=== PATIENT | male | born 1960 | race Caucasian/White ===

== ENCOUNTER 2017-10-02 11:29 | Emergency (ER) | payer BC, OTHER ==
[~2017-10-02] VITALS: Ht 172.7 cm; Wt 98.4 kg
--- NOTE | ~2017-10-02 | EKG ---
[place] [address] [facility] [place] [address] ELECTROCARDIOGRAM REPORT Name: KARINE MAR [facility]#: [id number] Admission: 10/02/17 Attend Phys: Discharge: 10/02/17 Date of : 62 Report #: [id number] THIS REPORT FOR: //name// [facility] ED Test Date: 2017-10-02 Test Time: 13:16:13 Pat Name: KARINE MAR Department: Room: Gender: M Car Repairer Helper: [id number] : 1960 Requested By: Josselyn Krause Order Number: [id number] MD: Endy Daugherty Measurements Intervals [place] Rate: 66 P: 28 AK: 177 QRS: -32 QRSD: 100 T: 121 QT: 380 QTc: 399 Interpretive Statements Sinus rhythm Left axis deviation Abnormal T, consider ischemia, lateral leads Compared to ECG 12/13/2016 20:01:16 Lateral T wave inversion now present Electronically Signed On 10-03-2017 9:24:25 DIRECTOR OF RESERVATIONS by Endy Daugherty [email or web address] <ELECTRONICALLY SIGNED> By: Endy Daugherty MD, [facility] 10/03/17 0924 1316 1316 Endy Daugherty MD, [facility] /EPI
[2017-10-02 13:38] LABS: ABSOLUTE NEUTROPHILS 3.8 thou/uL (1.4-8.2); BASOPHILS 0.7 % (0.0-2.0); EOSINOPHILS 1.6 % (0.0-3.0); HEMATOCRIT 53.4 % (42.0-52.0); HEMOGLOBIN 18.1 gm/dL (14.0-18.0); LYMPHOCYTES 29.7 % (24.0-44.0); MCH 30.6 pg (26.0-34.0); MCHC 33.9 g/dL (28.0-37.0); MCV 90.3 fL (80.0-100.0); MONOCYTES 11.4 % (1.0-8.0); POLYS 56.6 % (36.0-66.0); RBC 5.91 mil/uL (4.50-6.00); RDW 13.6 % (10.5-14.5); WBC 7.4 thou/uL (4.0-11.0)
[2017-10-02 13:40] LABS: MANUAL DIFF NO
[2017-10-02 13:46] LABS: ANION GAP 9 mmol/L (7-16); BUN 17 mg/dL (7-18); CALCIUM 9.4 mg/dL (8.5-10.1); CHLORIDE 102 mmol/L (98-107); CO2 26 mmol/L (21-32); CREATININE 1.4 mg/dL (0.7-1.3); GLUCOSE 106 mg/dL (74-106); POTASSIUM 4.6 mmol/L (3.5-5.1); SODIUM 137 mmol/L (136-145)
[2017-10-02 13:55] LABS: TROPONIN-I < 0.04 ng/mL (<0.06)
[2017-10-02 14:30] LABS: PLATELET COUNT 184 thou/uL (150-400)
[2017-10-02] MEDS ORDERED: ARIMIDEX PO (14:31)
[2017-10-02] MEDS ORDERED: LIPITOR 20 MG T20 M1 PO (14:32)
[2017-10-02] MEDS ORDERED: CLOMIPRAMINE HC50 M1 GT (14:33)
[2017-10-02] MEDS ORDERED: COZAAR 25 MG TA25 M2 PO (14:35)
[2017-10-02] MEDS ORDERED: OMEPRAZOLE 20 M20 M1 PO (14:36)
[2017-10-02] MEDS ORDERED: TOPROL XL25 MG PO (14:36)
[2017-10-02 15:01] LABS: URINE BILIRUBIN NEGATIVE (Negative); URINE BLOOD NEGATIVE (Negative); URINE COLOR YELLOW; URINE GLUCOSE-RANDOM* NEGATIVE (Negative); URINE KETONES NEGATIVE (Negative); URINE LEUKOCYTES-REFLEX NEGATIVE (Negative); URINE PROTEIN (DIPSTICK) NEGATIVE (Negative); URINE SPECIFIC GRAVITY 1.015 (1.005-1.035); URINE UROBILINOGEN 0.2 E.U./dl (0.2-1.0)
[2017-10-02 16:12] VITALS: BP 130/80
== END 2017-10-02 16:17 | disposition home or self-care (01) ==
LOC: ER 11:29
PROVIDERS: Emergency Medicine
DX: R94.31 Abnormal electrocardiogram [ECG] [EKG] (principal); Z88.7 Allergy status to serum and vaccine; Z77.22 Contact with and (suspected) exposure to environmental tobacco smoke (acute) (chronic); Z98.890 Other specified postprocedural states